=== PATIENT | male | born 1980 | race Caucasian/White ===

== ENCOUNTER 2019-03-16 13:46 | Emergency (ER) | payer BC ==
[2019-03-16 14:16] LABS: #Basophils 0.1 thou/uL (0.0-0.2); #Eosinphils 0.1 thou/uL (0.0-0.7); #Lymphocytes 2.9 thou/uL (1.20-3.40); #Monocytes 0.7 thou/uL (0.11-0.59); #Neutrophils 6.6 thou/uL (1.40-6.50); %Basophils 0.6 % (0.0-1.0); %Eosinophils 1.2 % (0.0-10.0); %Lymphocytes 27.6 % (21.0-51.0); %Neutrophils 63.7 % (42.0-75.0); Hemoglobin 16.3 g/dL (14.0-18.0); Mean Corpuscular HGB CONC 34.6 g/dL (32.0-36.0); Mean Corpuscular Hemoglobin 30.2 pg (27.0-31.0); Mean Corpuscular Volume 87.4 fL (78.0-98.0); Mean Platelet Volume 8.4 fL (7.4-10.4); Platelet Count 285 thou/uL (130-400); RBC Distribution Width 11.4 % (11.5-14.5); Red Blood Cell (RBC) Count 5.41 mill/uL (4.70-6.10); White Blood Cell (WBC) Count 10.4 thou/uL (4.8-10.8)
[2019-03-16] MEDS ORDERED: Aspirin Chewable 81 MG TAB ONE (14:32)
[2019-03-16 14:38] LABS: ALT (SGPT) 53 U/L (8-55); AST (SGOT) 35 U/L (5-34); Albumin 4.4 g/dL (3.5-5.0); Alkaline Phosphatase 92 U/L (40-110); Anion Gap 13 mmol/L (10-20); BUN (Urea Nitrogen) 11 mg/dL (8.9-20.6); Bilirubin, Total 1.2 mg/dL (0.2-1.2); Calc. Creatinine Clearance 0 mL/min (70-130); Calcium 9.4 mg/dL (7.8-10.44); Carbon Dioxide 26 mmol/L (22-29); Chloride 106 mmol/L (98-107); Estimated GFR-MDRD 63; Globulin 3.4 g/dL (2.4-3.5); Glucose 106 mg/dL (70-105); Potassium 3.7 mmol/L (3.5-5.1); Protein, Total 7.8 g/dL (6.0-8.3); Sodium 141 mmol/L (136-145)
--- NOTE | 2019-03-16 14:56 | RAD ---
RADIOGRAPH CHEST 1 VIEW: DATE: 03/16/2019 HISTORY: 38-year-old male with left-sided chest pain. FINDINGS: There are no air space densities, pulmonary edema, pneumothorax, or cardiomegaly. The lateral costop hrenic angles are sharp. IMPRESSION: No acute cardiopulmonary findings. jn [] POS: CET
[2019-03-16 17:29] LABS: Troponin I Less than 0.010 ng/mL (< 0.028)
== END 2019-03-16 18:23 | disposition home or self-care (01) ==
LOC: ERS 13:46
DX: R07.89 Other chest pain (principal); I10 Essential (primary) hypertension; E78.00 Pure hypercholesterolemia, unspecified
CPT/HCPCS: 36415; 71045; 80053; 84484; 85025; 85379; 93005

== ENCOUNTER 2020-05-04 23:34 | Inpatient (IN) | payer BC ==
[~2020-05-04 23:34] MED LIST: Iopamidol-370 76% 500 ML 1 ML ONE
[2020-05-05 00:08] LABS: #Lymphocytes 1.1 thou/uL (1.20-3.40); #Monocytes 0.6 thou/uL (0.11-0.59); #Neutrophils 6.1 thou/uL (1.40-6.50); %Basophils 0.3 % (0.0-1.0); %Eosinophils 0.1 % (0.0-10.0); %Lymphocytes 14.4 % (21.0-51.0); %Monocytes 7.4 % (0.0-10.0); %Neutrophils 77.7 % (42.0-75.0); Hemoglobin 13.4 g/dL (14.0-18.0); Mean Corpuscular HGB CONC 34.4 g/dL (32.0-36.0); Mean Corpuscular Hemoglobin 30.5 pg (27.0-31.0); Mean Corpuscular Volume 88.6 fL (78.0-98.0); Mean Platelet Volume 7.6 fL (7.4-10.4); Platelet Count 219 thou/uL (130-400); RBC Distribution Width 11.1 % (11.5-14.5); Red Blood Cell (RBC) Count 4.39 mill/uL (4.70-6.10); White Blood Cell (WBC) Count 7.8 thou/uL (4.8-10.8)
[2020-05-05 00:18] LABS: ALT (SGPT) 49 U/L (8-55); AST (SGOT) 56 U/L (5-34); Albumin 3.5 g/dL (3.5-5.0); Alkaline Phosphatase 51 U/L (40-110); Anion Gap 15 mmol/L (10-20); BUN (Urea Nitrogen) 17 mg/dL (8.9-20.6); Bilirubin, Total 0.9 mg/dL (0.2-1.2); Calc. Creatinine Clearance 0 mL/min (70-130); Calcium 8.4 mg/dL (7.8-10.44); Carbon Dioxide 24 mmol/L (22-29); Chloride 105 mmol/L (98-107); Glucose 110 mg/dL (70-105); Potassium 4.3 mmol/L (3.5-5.1); Protein, Total 6.5 g/dL (6.0-8.3); Sodium 140 mmol/L (136-145)
[2020-05-05 00:25] LABS: INR-International Normal Ratio 1.1; PTT 30.6 sec (22.9-36.1); Prothrombin Time 13.9 sec (12.0-14.7)
[2020-05-05] MEDS ORDERED: Acetaminophen 500 MG TAB ONE (02:01)
[2020-05-05 02:17] LABS: Bacteria/HPF None Seen HPF (None Seen); Bilirubin Negative (Negative); Blood, Urine Negative (Negative); Clarity Clear (Clear); Glucose, Urine (Dipstick) Normal (Negative); Ketone, Urine Trace mg/dL (Negative); Leukocyte Negative Leu/uL (Negative); Nitrite Negative (Negative); Protein, Urine (Dipstick) 30 mg/dL (Neg-Trace); RBC/HPF 0-3 HPF (0-3); Specific Gravity, Urine 1.025 (1.002-1.036); Squamous Epithelial None Seen HPF (0-3); WBC/HPF 0-3 HPF (0-3); pH, Urine 6.5 (5.0-9.0)
[2020-05-05 02:45] VITALS: BMI 28.9
[2020-05-05] MEDS ORDERED: Ondansetron PF 4 MG/2 ML Vial IVP PRN (06:26)
[2020-05-05] MEDS ORDERED: hydrALAZINE 20 MG/ML VIAL SLOW IVP PRN (07:05)
[2020-05-05] MEDS: Famotidine 20 MG TAB PO SCH ×2 (09:19→20:53)
[2020-05-05] MEDS: Zinc Sulfate 220 MG CAP PO SCH (09:19)
[2020-05-05] MEDS: Benzonatate 100 MG CAP PO PRN ×2 (09:19→17:15)
[2020-05-05] MEDS: Ascorbic Acid 500 mg Chewable Tablet PO SCH (09:19)
[2020-05-05] MEDS: Dexamethasone 4 mg/ml Vial SLOW IVP SCH (09:20)
[2020-05-05] MEDS: Enoxaparin Sodium 40 MG/0.4 ML SYRINGE SC SCH (09:21)
[2020-05-05] MEDS: Albuterol 200 PUFF (6.7GM INHALER) INH SCH ×4 (09:21→22:27)
[2020-05-05] MEDS: Acetaminophen 325 MG TAB PO PRN ×2 (09:41→17:15)
[2020-05-06] MEDS: Albuterol 200 PUFF (6.7GM INHALER) INH SCH ×6 (02:50→22:13)
[2020-05-06] MEDS: Benzonatate 100 MG CAP PO PRN ×2 (03:14→09:01)
[2020-05-06] MEDS: Acetaminophen 325 MG TAB PO PRN ×2 (03:14→11:54)
[2020-05-06 06:15] LABS: #Lymphocytes 1.1 thou/uL (1.20-3.40); #Monocytes 0.5 thou/uL (0.11-0.59); #Neutrophils 4.6 thou/uL (1.40-6.50); %Eosinophils 0.3 % (0.0-10.0); %Lymphocytes 17.5 % (21.0-51.0); %Monocytes 8.5 % (0.0-10.0); %Neutrophils 73.7 % (42.0-75.0); Hemoglobin 13.2 g/dL (14.0-18.0); Mean Corpuscular HGB CONC 33.9 g/dL (32.0-36.0); Mean Corpuscular Hemoglobin 30.4 pg (27.0-31.0); Mean Corpuscular Volume 89.5 fL (78.0-98.0); Mean Platelet Volume 7.5 fL (7.4-10.4); Platelet Count 262 thou/uL (130-400); RBC Distribution Width 11.1 % (11.5-14.5); Red Blood Cell (RBC) Count 4.35 mill/uL (4.70-6.10); White Blood Cell (WBC) Count 6.2 thou/uL (4.8-10.8)
[2020-05-06 06:36] LABS: Anion Gap 15 mmol/L (10-20); BUN (Urea Nitrogen) 12 mg/dL (8.9-20.6); Calc. Creatinine Clearance 142 mL/min (70-130); Calcium 8.8 mg/dL (7.8-10.44); Carbon Dioxide 23 mmol/L (22-29); Chloride 106 mmol/L (98-107); Glucose 114 mg/dL (70-105); Potassium 4.3 mmol/L (3.5-5.1); Sodium 140 mmol/L (136-145)
[2020-05-06] MEDS: Zinc Sulfate 220 MG CAP PO SCH (09:01)
[2020-05-06] MEDS: Dexamethasone 4 mg/ml Vial SLOW IVP SCH (09:01)
[2020-05-06] MEDS: Enoxaparin Sodium 40 MG/0.4 ML SYRINGE SC SCH ×3 (09:01→20:07)
[2020-05-06] MEDS: Famotidine 20 MG TAB PO SCH ×2 (09:02→20:00)
[2020-05-06] MEDS: Ascorbic Acid 500 mg Chewable Tablet PO SCH (09:02)
[2020-05-06] MEDS: cefTRIAXone\\ROCEPHIN 1 GM in Sodium Chloride 0.9% 100 ML IVPB SCH (14:32)
[2020-05-06] MEDS: Azithromycin 500 MG in Sodium Chloride 0.9% 250 ML 250 ML IVPB SCH (16:01)
[2020-05-07] MEDS: Benzonatate 100 MG CAP PO PRN ×3 (00:17→21:54)
[2020-05-07] MEDS: Albuterol 200 PUFF (6.7GM INHALER) INH SCH ×6 (01:44→23:17)
[2020-05-07] MEDS ORDERED: guaiFENesin 200 MG TAB PO PRN (03:51)
[2020-05-07 06:48] LABS: #Lymphocytes 1.5 thou/uL (1.20-3.40); #Monocytes 1.1 thou/uL (0.11-0.59); #Neutrophils 8.5 thou/uL (1.40-6.50); %Basophils 0.4 % (0.0-1.0); %Eosinophils 0.4 % (0.0-10.0); %Lymphocytes 13.3 % (21.0-51.0); %Monocytes 10.2 % (0.0-10.0); %Neutrophils 75.7 % (42.0-75.0); Hemoglobin 13.6 g/dL (14.0-18.0); Mean Corpuscular HGB CONC 34.6 g/dL (32.0-36.0); Mean Corpuscular Hemoglobin 30.7 pg (27.0-31.0); Mean Corpuscular Volume 88.9 fL (78.0-98.0); Mean Platelet Volume 7.4 fL (7.4-10.4); Platelet Count 336 thou/uL (130-400); RBC Distribution Width 11.2 % (11.5-14.5); Red Blood Cell (RBC) Count 4.42 mill/uL (4.70-6.10); White Blood Cell (WBC) Count 11.2 thou/uL (4.8-10.8)
[2020-05-07 07:12] LABS: Anion Gap 15 mmol/L (10-20); BUN (Urea Nitrogen) 16 mg/dL (8.9-20.6); Calc. Creatinine Clearance 141 mL/min (70-130); Calcium 8.6 mg/dL (7.8-10.44); Carbon Dioxide 25 mmol/L (22-29); Chloride 104 mmol/L (98-107); Glucose 106 mg/dL (70-105); Sodium 140 mmol/L (136-145)
[2020-05-07] MEDS: Zinc Sulfate 220 MG CAP PO SCH (08:20)
[2020-05-07] MEDS: Cholecalciferol (Vitamin D3) 400 UNITS TAB PO SCH (08:20)
[2020-05-07] MEDS: Ascorbic Acid 500 mg Chewable Tablet PO SCH (08:20)
[2020-05-07] MEDS: Famotidine 20 MG TAB PO SCH ×2 (08:20→21:40)
[2020-05-07] MEDS: Dexamethasone 4 mg/ml Vial SLOW IVP SCH (08:21)
[2020-05-07] MEDS: Enoxaparin Sodium 40 MG/0.4 ML SYRINGE SC SCH ×2 (08:21→21:40)
[2020-05-07] MEDS: Acetaminophen 325 MG TAB PO PRN (08:22)
[2020-05-07] MEDS: cefTRIAXone\\ROCEPHIN 1 GM in Sodium Chloride 0.9% 100 ML IVPB SCH (14:55)
[2020-05-07] MEDS: Azithromycin 500 MG in Sodium Chloride 0.9% 250 ML 250 ML IVPB SCH (15:57)
[2020-05-08] MEDS: Albuterol 200 PUFF (6.7GM INHALER) INH SCH ×4 (01:52→15:14)
[2020-05-08] MEDS: Benzonatate 100 MG CAP PO PRN (04:17)
[2020-05-08 06:04] LABS: #Eosinphils 0.1 thou/uL (0.0-0.7); #Lymphocytes 1.8 thou/uL (1.20-3.40); #Neutrophils 9.8 thou/uL (1.40-6.50); %Basophils 0.2 % (0.0-1.0); %Eosinophils 0.4 % (0.0-10.0); %Lymphocytes 14.3 % (21.0-51.0); %Monocytes 7.5 % (0.0-10.0); %Neutrophils 77.5 % (42.0-75.0); Hemoglobin 13.8 g/dL (14.0-18.0); Mean Corpuscular HGB CONC 34.6 g/dL (32.0-36.0); Mean Corpuscular Hemoglobin 30.9 pg (27.0-31.0); Mean Corpuscular Volume 89.1 fL (78.0-98.0); Mean Platelet Volume 7.7 fL (7.4-10.4); Platelet Count 365 thou/uL (130-400); RBC Distribution Width 11.1 % (11.5-14.5); Red Blood Cell (RBC) Count 4.47 mill/uL (4.70-6.10); White Blood Cell (WBC) Count 12.6 thou/uL (4.8-10.8)
[2020-05-08 06:17] LABS: Anion Gap 15 mmol/L (10-20); BUN (Urea Nitrogen) 14 mg/dL (8.9-20.6); Calc. Creatinine Clearance 133 mL/min (70-130); Calcium 8.6 mg/dL (7.8-10.44); Carbon Dioxide 25 mmol/L (22-29); Chloride 103 mmol/L (98-107); Glucose 99 mg/dL (70-105); Potassium 3.9 mmol/L (3.5-5.1); Sodium 139 mmol/L (136-145)
[2020-05-08] MEDS: Famotidine 20 MG TAB PO SCH (08:08)
[2020-05-08] MEDS: Ascorbic Acid 500 mg Chewable Tablet PO SCH (08:08)
[2020-05-08] MEDS: Cholecalciferol (Vitamin D3) 400 UNITS TAB PO SCH (08:08)
[2020-05-08] MEDS: Enoxaparin Sodium 40 MG/0.4 ML SYRINGE SC SCH (08:09)
[2020-05-08] MEDS: Dexamethasone 4 mg/ml Vial SLOW IVP SCH (08:09)
[2020-05-08] MEDS: Acetaminophen 325 MG TAB PO PRN (08:09)
[2020-05-08] MEDS: Zinc Sulfate 220 MG CAP PO SCH (08:10)
[2020-05-08 11:25] VITALS: BP 138/84; TEMP 98.1
== END 2020-05-08 16:53 | disposition home or self-care (01) | DRG 177 ==
LOC: ERS 23:34 → T4-B 05-05 01:30
PROVIDERS: ADMIT Internal Medicine; ATTEND Internal Medicine
PROC: 8E0ZXY6 Isolation (ICD-10-PCS; principal; 2020-05-05)
DX: U07.1 COVID-19 (principal); J12.82 Pneumonia due to coronavirus disease 2019; J96.01 Acute respiratory failure with hypoxia; C85.90 Non-Hodgkin lymphoma, unspecified, unspecified site; I10 Essential (primary) hypertension; E78.5 Hyperlipidemia, unspecified; E66.9 Obesity, unspecified; Z68.28 Body mass index [BMI] 28.0-28.9, adult
CPT/HCPCS: 36415; 36416; 71045; 71275; 80048; 80053; 81003; 81015; 82728; 83605; 83880; 84145; 84484; 85025; 85379; 85610; 85730; 86140; 87040; 87086; 93005; 94760; J0456; J0696; J1100; J1650; J3490; J7050; Q9967